=== PATIENT | female | born 1990 | race Caucasian/White ===

== ENCOUNTER → 2017-11-13 10:52 | Outpatient (CLI) | payer BC, MEDICAID, SELFPAY ==
[2017-11-13 12:49] LABS: Hematocrit 32.2 % (37-47); Hemoglobin 10.8 g/dl (12.0-15.0); Mean Corp Hgb Conc 33.5 g/gl (32-36); Mean Corpuscular Hgb 29.7 pg (27.0-32.0); Mean Corpuscular Volume 88.5 fL (81-99); Mean Platelet Vol. 10.3 fl (6.2-12.0); Platelet Count 209 K/mm3 (150-450); RBC Distribution Width CV 14.1 % (11.6-14.6); RBC Distribution Width SD 43.7 fl (35.1-43.9); Red Blood Count 3.64 M/mm3 (4.2-5.4); White Blood Count 11.4 K/mm3 (4.4-11.0)
[2017-11-13 12:50] LABS: Glucose Challenge Gest 1H 50g 112 mg/dL (70-140)
[2017-11-13 12:52] LABS: Scan Indicated on CBC? Y/N NO
== END ==
PROVIDERS: Visit Provider Obstetrics & Gynecology
DX: Z34.83 Encounter for supervision of other normal pregnancy, third trimester (principal); Z3A.00 Weeks of gestation of pregnancy not specified
CPT/HCPCS: 36415; 82950; 85027; 86850

== ENCOUNTER → 2018-01-08 13:51 | Outpatient (CLI) | payer BC, MEDICAID, SELFPAY ==
[2018-01-08 16:54] LABS: Group B Strep DNA By PCR POSITIVE (Negative)
[2018-01-08 16:55] LABS: Probe Check PASS
== END ==
PROVIDERS: Visit Provider Obstetrics & Gynecology
DX: Z36.85 Encounter for antenatal screening for Streptococcus B (principal)
CPT/HCPCS: 87653

== ENCOUNTER 2018-01-31 06:10 | Inpatient (IN) | payer BC, MEDICAID, SELFPAY ==
[2018-01-31 06:30] VITALS: BMI 32.5
[2018-01-31] MEDS: Lactated Ringers 1,000 ML 50 ML IV (06:30)
[2018-01-31 06:55] LABS: Hematocrit 38.3 % (37-47); Mean Corp Hgb Conc 33.9 g/gl (32-36); Mean Corpuscular Hgb 29.5 pg (27.0-32.0); Mean Corpuscular Volume 86.8 fL (81-99); Mean Platelet Vol. 10.5 fl (6.2-12.0); Platelet Count 144 K/mm3 (150-450); RBC Distribution Width CV 14.5 % (11.6-14.6); RBC Distribution Width SD 45.1 fl (35.1-43.9); Red Blood Count 4.41 M/mm3 (4.2-5.4); White Blood Count 15.3 K/mm3 (4.4-11.0)
[2018-01-31 06:57] LABS: Scan Indicated on CBC? Y/N NO
[2018-01-31] MEDS: Oxytocin 30 units/NS 500 ml 30 UNITS/500 ML IV.SOLN 334 UNITS IV (07:18)
--- NOTE | 2018-01-31 07:47 | PCM.OB.VAG ---
- Problem List (1) 39 weeks gestation of Status: Acute (2) (spontaneous vaginal delivery) Status: Acute Vaginal Delivery Maternal Presentation: Active Labor Amniotic Membrane Rupture Type: Artificial Rupture of Membrane time: 01/31/18 0652h Amniotic Fluid Description: Clear Final ZAIRA: 02/03/18 Final ZAIRA Source: US <20 weeks Gestational age: 39 Weeks and 4 Days Date of Procedure: 01/31/18 Pre-Operative Diagnosis: 39 4/7wga, labor Post-Operative Diagnosis: 39 4/7wga, labor, precipitous dleivery Surgery/ Procedure Performed: Spontaneous Vaginal Delivery Type of Anesthesia: None Description of Procedure: Patient was FD/+1 station. She pushed to deliver a vigorous female over an intact perineum. The infant was placed on the maternal abdomen and further attended by nursery personnel. The cord was doubly clamped and cut after approximately 5 minutes of life. Cord blood specimen was obtained. The placenta delivered spontaneously and appeared intact on inspection. The perineum and vagina were intact. There was excellent hemostasis. Presentation: Vertex, TARI Placental Delivery Description: Spontaneous Placenta Disposition: [facility] Cord Vessel Description: 3 Vessels Cord Entanglement: None Estimated Blood Loss: 250 mL A gender: Female (1 minute): 8 (5 minute): 9 Episiotomy Description: None Laceration: None Medications given after delivery: IV Pitocin Complications: None
[2018-01-31 09:11] LABS: AST(SGOT) 21 U/L (15-37); Alanine Aminotransfer ALT/SGPT 23 U/L (13-56); Creatinine, Serum 0.79 mg/dL (0.55-1.02); EST Glomerular Filtration Rate 94 mL/min (>60); Est Glom Filt Rate - Afr Amer 114 mL/min (>60); Estimated Creatinine Clearance 90.05 ml/min; Prothrombin Time (Protime)PT. 13.1 SECONDS (11.7-14.9); Uric Acid 5.9 mg/dL (2.6-6.0)
[2018-01-31 09:12] LABS: Partial Thromboplast Time 35.4 Seconds (24.1-36.2)
[2018-01-31] MEDS: Oxytocin 30 units/NS 500 ml 30 UNITS/500 ML IV.SOLN 167 UNITS IV (10:34)
[2018-01-31 11:33] VITALS: BP 141/85; PULSE 95; RESP 16; TEMP 36.6; O2SAT 96
[2018-01-31 13:00] VITALS: BP 130/81
[2018-01-31] MEDS: Ibuprofen 600 MG Tablet PO (13:53)
[2018-01-31 16:47] VITALS: BP 125/76; PULSE 85; RESP 16; TEMP 36.8; O2SAT 98
[2018-01-31] MEDS: Acetaminophen 325 MG Tablet PO (17:46)
[2018-01-31] MEDS: Prenatal Vits Tablet 1 TABLET PO (17:46)
[2018-01-31 20:00] VITALS: BP 116/75; PULSE 90; RESP 16; TEMP 36.8
[2018-02-01] VITALS: BP 114/72; PULSE 71; RESP 16; TEMP 36.4
[2018-02-01 04:45] VITALS: BP 121/70; PULSE 79; RESP 16; TEMP 36.7
[2018-02-01 08:16] VITALS: BP 130/77; PULSE 78; RESP 16; TEMP 36.6; O2SAT 98
--- NOTE | 2018-02-01 08:57 | CASEMGMT ---
Social Work Note [see assessment] BOZENA lives with David CERON, and their 3 year old son. BOZENA works FT as does JIE. MOB will be on 12 week maternity leave and then returning to work part-time. Both report to have adequate support among family. Financially feel stable. Both claim to have all necessary supplies including car seat, crib, clothes, diapers, etc. BOZENA intends on breast feeding. Reports that 3 year old has met infant and is very excited. No hx of involvement with CSB. BOZENA reports hx of ppd with her last child. Was on Zoloft for 6 months as prescribed by Dr. Stuart at the time. Educated to ppd and provided with packet. BOZENA expresses understanding in knowledge of symptoms and assistance to seek if those appear and persist. Her OBGYN is Dr. Stuart, but Miguel Angel delivered. Her PCP is at [facility] and she sees whoever is available. Infants Machine Shop Supervisor will be Dr. Bruce, and BOZENA knows to schedule an appointment within the next two weeks. Claims to have access to transportation. Denies substance abuse hx. No additional needs present at this time and MOB and FOB made aware that SW is available if needs arise. Alicja Quinn, SSN/SSBN WEAPONS EQUIPMENT OPERATOR, ELECTRICAL SUPERINTENDENT
--- NOTE | 2018-02-01 10:42 | PCM.PN.OB ---
Patient Problems: Active and Suspected Problems 39 weeks gestation of (Acute) (spontaneous vaginal delivery) (Acute) Subjective: Patient in the shower but indicates she is without complaints or problems. Doing well. Wants to stay until tomorrow. - Physical Exam Vital Signs AF, VSS Temp Pulse Resp BP Pulse Ox 97.8 F 78 16 130/77 H 98 02/01/18 08:16 02/01/18 08:16 02/01/18 08:16 02/01/18 08:16 02/01/18 08:16 Oxygen Delivery Method Room Air Weight: 183 lb 6.793 oz Body Mass Index (BMI) 32.5 Intake and Output for Last 24 Hours 01/30/18 01/31/18 02/01/18 23:59 23:59 23:59 Output Total 1250 / 1250 Balance -1250 / -1250 Medical Necessity - Tobacco Use Smoking Status: Former smoker Assessment/Plan Active and Suspected Problems 39 weeks gestation of (Acute) (spontaneous vaginal delivery) (Acute) Doing well. Continue present care. Anticipate release tomorrow.
[2018-02-01] MEDS: Prenatal Vits Tablet 1 TABLET PO (12:00)
[2018-02-01] MEDS: Ibuprofen 600 MG Tablet PO ×2 (12:00→23:47)
[2018-02-01 14:52] VITALS: BP 123/75; PULSE 84; RESP 16; TEMP 36.7
[2018-02-01 20:00] VITALS: BP 138/86; PULSE 83; RESP 16; TEMP 37; O2SAT 98
[2018-02-02] MEDS: Acetaminophen 325 MG Tablet PO (01:15)
[2018-02-02 02:00] VITALS: BP 112/80; PULSE 79; RESP 18; TEMP 36.4; O2SAT 97
[2018-02-02] MEDS: Ibuprofen 600 MG Tablet PO (06:45)
[2018-02-02 07:57] VITALS: BP 128/85; PULSE 78; RESP 16; TEMP 36.8
--- NOTE | 2018-02-02 09:35 | PCM.PN.OB ---
Patient Problems: Active and Suspected Problems 39 weeks gestation of (Acute) (spontaneous vaginal delivery) (Acute) Subjective: Patient without complaints. Breast-feeding going well. Ready to go home. - Physical Exam Vital Signs AF, VSS Temp Pulse Resp BP Pulse Ox 98.2 F 78 16 128/85 H 97 02/02/18 07:57 02/02/18 07:57 02/02/18 07:57 02/02/18 07:57 02/02/18 02:00 Oxygen Delivery Method Room Air Weight: 183 lb 6.793 oz Body Mass Index (BMI) 32.5 Intake and Output for Last 24 Hours 01/31/18 02/01/18 02/02/18 23:59 23:59 23:59 Output Total 1250 / 1250 Balance -1250 / -1250 Medical Necessity - Tobacco Use Smoking Status: Former smoker Assessment/Plan Active and Suspected Problems 39 weeks gestation of (Acute) (spontaneous vaginal delivery) (Acute) Doing well. Will release to home with routine instructions.
--- NOTE | 2018-02-02 09:36 | PCM.DCVAG ---
Discharge Diet: No Restrictions Discharge Activity: May Shower, May Take a Tub Bath May resume sexual activity in: 4-6 weeks Additional Activity Instructions:: Nothing in the vagina for 4-6 weeks. You may return to work/school in 6 weeks. Call your doctor if you observe: Fever of 101 or Higher, Inability to urinate, Inability to have a bowel movement, Using more than one pad per hour Additional Instructions: If you experience any of the following, contact your healthcare provider. Bleeding that soaks a pad every hour for 2 hours Unrelieved incision or abdominal pain Swelling, redness, discharge or bleeding from your incision or episiotomy site Your incision begins to separate Problems urinating (including inability to urinate or burning while urinating). Visual changes Severe headache Flu-like symptoms Pain or redness in one of both of your breasts Pain, warmth, tenderness or swelling in your legs, especially the calf area Frequent nausea and vomiting Symptoms of depression or anxiety If you experience any of the following, call 911 or go to the nearest Emergency Room. Chest pain Problems breathing Seizure activity Partial or complete paralysis of a body part, slurred speech, weakness or drooping of the face, or a sudden inability to walk or hold your balance Allergies/Adverse Reactions: Allergies No Known Allergies Allergy (Verified 01/31/18 06:27) Medications to take at Discharge Ferrous Sulfate [Iron] 325 mg PO DAILY 01/31/18 Pnv No.100/Iron/FA/Dha/Epa [Theranatal One Softgel] 1 tab PO DAILY 01/31/18 Please Follow Up With: Ton Tyson MD - [phone] When: Call to make an appointment with your doctor in 6 weeks. Primary Care Physician: Care Physician,No Primary [Primary Care Provider] -
--- NOTE | 2018-02-02 09:37 | DCINST_ITS ---
Discharge Diet: No Restrictions Discharge Activity: May Shower, May Take a Tub Bath May resume sexual activity in: 4-6 weeks Additional Activity Instructions:: Nothing in the vagina for 4-6 weeks. You may return to work/school in 6 weeks. Call your doctor if you observe: Fever of 101 or Higher, Inability to urinate, Inability to have a bowel movement, Using more than one pad per hour Additional Instructions: If you experience any of the following, contact your healthcare provider. * Bleeding that soaks a pad every hour for 2 hours * Unrelieved incision or abdominal pain * Swelling, redness, discharge or bleeding from your incision or episiotomy site * Your incision begins to separate * Problems urinating (including inability to urinate or burning while urinating) . * Visual changes * Severe headache * Flu-like symptoms * Pain or redness in one of both of your breasts * Pain, warmth, tenderness or swelling in your legs, especially the calf area * Frequent nausea and vomiting * Symptoms of depression or anxiety If you experience any of the following, call 911 or go to the nearest Emergency Room. * Chest pain * Problems breathing * Seizure activity * Partial or complete paralysis of a body part, slurred speech, weakness or drooping of the face, or a sudden inability to walk or hold your balance Allergies/Adverse Reactions: Allergies No Known Allergies Allergy (Verified 01/31/18 06:27) Medications to take at Discharge Ferrous Sulfate [Iron] 325 mg PO DAILY 01/31/18 Pnv No.100/Iron/FA/Dha/Epa [Theranatal One Softgel] 1 tab PO DAILY 01/31/18 Please Follow Up With: Ton Tyson MD - [phone] When: Call to make an appointment with your doctor in 6 weeks. Primary Care Physician: Care Physician,No Primary [Primary Care Provider] -
[2018-02-02] MEDS: Prenatal Vits Tablet 1 TABLET PO (11:23)
== END 2018-02-02 12:15 | disposition home or self-care (01) | DRG 775 ==
PROVIDERS: Admitting Provider Obstetrics & Gynecology; Visit Provider Obstetrics & Gynecology
DX: O62.3 Precipitate labor (principal); Z87.891 Personal history of nicotine dependence; Z3A.39 39 weeks gestation of pregnancy; Z37.0 Single live birth
CPT/HCPCS: 59050; 82565; 84450; 84460; 84550; 85027; 85610; 85730; 86850; 86900; 99218; J7120; G0378

== ENCOUNTER 2018-02-05 10:15 | Outpatient (CLI) | payer BC, MEDICAID, SELFPAY | END 2018-02-05 11:15 | disposition home or self-care (01) | LOC: WPOUT 10:18 → WP 10:19 | PROVIDERS: Visit Provider Obstetrics & Gynecology | DX: Z39.1 Encounter for care and examination of lactating mother (principal) | CPT/HCPCS: 96152 ==

== ENCOUNTER → 2018-03-18 11:10 | Outpatient (CLI) | payer BC, MEDICAID, SELFPAY ==
[2018-03-18 13:56] LABS: hCG Titer Quant., Serum < 1 mIU/mL (<9 non-preg)
[2018-03-25 15:39] LABS: HPV Reflexed? NOT INDICATED
== END ==
PROVIDERS: Visit Provider Obstetrics & Gynecology
DX: Z30.09 Encounter for other general counseling and advice on contraception (principal); Z12.4 Encounter for screening for malignant neoplasm of cervix
CPT/HCPCS: 36415; 84144; 84702; 88175; G0145

== ENCOUNTER 2018-04-28 10:27 | Day surgery (SDC) | payer BC, MEDICAID, SELFPAY ==
[2018-04-28] VITALS (7 sets, daily range): BP systolic 123–135; BP diastolic 73–82; PULSE 64–84; RESP 16–18; TEMP 36.2–36.8; O2SAT 98–100; BMI 28.5
[2018-04-28 10:51] LABS: Internal QC Validated? YES +Cl - CLEAR BKGD; Pregnancy, Urine Negative Negative
--- NOTE | 2018-04-28 12:00 | FALS_PTH ---
PATIENT: SANDRA CELESTE LOC: [facility] [place] U#:[id number] AGE/SX: 27/ ROOM: RE04/28/[address]: Dr. Rebekah Stuart MD : [id number] BED: DIS: 04/28/2018 SPEC #: [id number] RECD: 04/28/18 15:29 STATUS: BARBARA MARGARITO #: [id number] ZOHRA: 04/28/18 12:[address]: Rebekah Stuart DEPT: SURGICAL PATHOLOGY RECD BY: Rufus Ken ENTERED: 04/29/18 08:29 SP TYPE: FALL TUBES OTHR DR: Dr. Rinku Guillory MD Tissues: Fallopian tube Procedures: Surgery Specimen Level II HEADER OPERATION: Laparoscopic salpingectomy, bilateral PRE-OP DIAGNOSIS: Sterilization request TISSUE SUBMITTED: Bilateral fallopian tubes MICROSCOPIC DIAGNOSIS Bilateral fallopian tubes, salpingectomy: Bilateral fallopian tubes including fimbrial ends, no pathologic diagnosis. SJ:elisabet 04/30/18 MICROSCOPIC DESCRIPTION Slides are reviewed. GROSS DESCRIPTION Received is one container labeled with the patient's name and designated bilateral fallopian tubes. The specimen consists of bilateral fallopian tubes including fimbrial ends measuring 5.5 cm in length and 0.6 cm in diameter and 6 cm in length and 0.6 cm in diameter. The fallopian tubes are not identified as right or left. Sections do not reveal any mass lesion. Cattle Alley Worker sections are submitted in two cassettes with each cassette containing one fallopian tube. / VIOLET:elisabet 04/29/18 TC:4 CPT: 99781 x2
[2018-04-28] MEDS: Bupiv/Epi 0.5% Mpf 30 ML Vial (12:44)
[2018-04-28] MEDS: Silver Nitrate (BKC) 1 EACH (12:46)
--- NOTE | 2018-04-28 12:56 | PCM.DC.TUB ---
Discharge Diet: No Restrictions Discharge Activity: May not drive while taking narcotic pain medications., May Shower, May Take a Tub Bath May resume sexual activity in: 1 week Additional Activity Instructions:: Ambulate often the next week after surgery. Nothing in the vagina for 5 days. Call your doctor if you observe: Fever of 101 or Higher, Inability to urinate, Inability to have a bowel movement, Uncontrolled pain Change Dressing in (Days):: 4 Remove Dressing in (days):: 4 Cleanse incision/area with: Soap & Water, Keep Dressing Clean & Dry Allergies/Adverse Reactions: Allergies No Known Allergies Allergy (Verified 04/16/18 12:37) Medications to take at Discharge Pnv No.100/Iron/FA/Dha/Epa [Theranatal One Softgel] 1 tab PO DAILY 01/31/18 Ethinyl Estradiol/Drospirenone [Marcelina 28 Tablet] 1 each PO DAILY 04/16/18 Hydrocodone/Acetaminophen [[place] 5-325 Tablet] 1 - 2 tab PO 4X/DAY PRN 2 Days #10 tablet 04/28/18 The following prescriptions were given: Hydrocodone/Acetaminophen [[place] 5-325 Tablet] 1 - 2 tab PO 4X/DAY PRN 2 Days #10 tablet PRN Reason: Mod-Severe Pain (4-10/10) Primary Care Physician: Rinku Guillory MD [Primary Care Provider] - Test Results: Test results from this visit will be discussed in further detail at your follow-up appointment, if applicable. Please Follow Up With: Rebekah Stuart MD - [phone] When: appointment in 2 wk for postop check up. Proposed Discharge Date: 04/28/18
--- NOTE | 2018-04-28 13:01 | DCINST_ITS ---
Discharge Diet: No Restrictions Discharge Activity: May not drive while taking narcotic pain medications., May Shower, May Take a Tub Bath May resume sexual activity in: 1 week Additional Activity Instructions:: Ambulate often the next week after surgery. Nothing in the vagina for 5 days. Call your doctor if you observe: Fever of 101 or Higher, Inability to urinate, Inability to have a bowel movement, Uncontrolled pain Change Dressing in (Days):: 4 Remove Dressing in (days):: 4 Cleanse incision/area with: Soap & Water, Keep Dressing Clean & Dry Allergies/Adverse Reactions: Allergies No Known Allergies Allergy (Verified 04/16/18 12:37) Medications to take at Discharge Pnv No.100/Iron/FA/Dha/Epa [Theranatal One Softgel] 1 tab PO DAILY 01/31/18 Ethinyl Estradiol/Drospirenone [Marcelina 28 Tablet] 1 each PO DAILY 04/16/18 Hydrocodone/Acetaminophen [[place] 5-325 Tablet] 1 - 2 tab PO 4X/DAY PRN 2 Days # 10 tablet 04/28/18 The following prescriptions were given: Hydrocodone/Acetaminophen [[place] 5-325 Tablet] 1 - 2 tab PO 4X/DAY PRN 2 Days # 10 tablet PRN Reason: Mod-Severe Pain (4-10/10) Primary Care Physician: Rinku Guillory MD [Primary Care Provider] - Test Results: Test results from this visit will be discussed in further detail at your follow- up appointment, if applicable. Please Follow Up With: Rebekah Stuart MD - [phone] When: appointment in 2 wk for postop check up. Proposed Discharge Date: 04/28/18
--- NOTE | 2018-04-28 17:23 | PCM.OP.BLANK ---
Operative Report Date of Procedure: 04/28/18 PROCEDURE: Laparoscopic Bilateral Salpingectomy PREOPERATIVE DIAGNOSIS: Sterilization request POSTOPERATIVE diagnosis: Sterilization request Surgeon: Rebekah Stuart MD Anesthesia: general anesthesia. Ashley Ashley CRNA Scrub Wheel Operator: none EBL: minimal Complications: None Drains: none. Voided just prior to OR Fluids: LR replacement Findings; Normal appearing, uterus. Fallopian tubes and ovaries are WNL. Gross inspection of bowel, omentum. liver edge also WNL. photos were taken of the uterus and ovaries after Bilateral salpingectomy, and of the RUQ / liver edge Photo also taken of filmy periappendiceal adhesions noted. Narrative account: After the risks, benefits, alternatives of procedure had been reviewed with the patient, informed consent was obtained. The patient was taken back to the Operative room with an IV running. she was positioned on the operating table in dorsal supine position, where she was given general anesthesia. Once asleep she was repositioned to the dorsal lithotomy position and prepped and draped in the usual sterile fashion with arms tucked bilaterally. A single toothed tenaculum and Gerry cannula were placed into the cervix to allow manipulation of the uterus and cervix during the case. Attention was then turned to the anterior abdominal wall where 0.25 % Marcaine with epinephrine was instilled at the suprapubic and infraumbilical skin and at a point midway between in the midline. 5 mm skin incisions were then created in the midline at the suprapubic skin and at the infraumbilical skin and midway between the two. While maintaining upward traction of the anterior abdominal wall a Veress needle was inserted through the umbilical incision into the peritoneal cavity. There was free drop of saline, low opening pressure and free flow of CO2 noted. Once the intraabdominal pressure had reached 12 mm of mercury the Veress needle was removed and a bladeless 5 mm trocar was placed through infraumbilical skin incision into the peritoneal cavity. Correct placement was confirmed using the scope. Under direct visualization then with the patient in Trendelenburg position, a bladeless 5 mm trocar was inserted in through suprapubic skin incision into the peritoneal cavity and at a point midway between the infraumbilical and suprapubic trocars. The uterus as anteverted and both ovaries and fallopian tubes were WNL. The L fallopian tube was grasped and retracted medially and using a LigaSure device the fallopian tube was excised from the ovary and mesosalpinx. Excellent hemostasis was noted at the excision site. The L fallopian tube was brought through the suprapubic trocar and set aside for later pathology review. In a similar manner the R fallopian tube was grasped and retracted medially and the fallopian tube was excised and removed from the abdominal cavity through the suprapubic trochar. The Fallopian tubes were sent to pathology. Excellent hemostasis was noted by visualization of the pelvis, ovaries, and remaining mesosalpinx. Photos were taken of the uterus and Bilateral remaining ovaries and of the RUQ and liver edge. The appendix was also photographed with filmy periappendiceal adhesions noted. At this point the the procedure was terminated. The pneumoperitoneum was reduced and the instruments and trocars were removed from he the anterior abdominal wall skin. The skin incisions were closed with 4-0 Monocryl in a subcuticular fashion. Dermabond and OpSites were applied to the skin. The Single toothed tenaculum and Gerry cannula were removed from the vagina. There was some bleeding noted at the tenaculum puncture sites and a ring forceps was used to apply pressure. The puncture sites were treated with AgNO3. Excellent hemostasis was then noted. The patient was returned to dorsal supine position. She was awakened from general anesthesia. She was transferred to the recovery room bed in stable condition after tolerating the procedure well. Sponge, lap, needle and instrument counts were correct x two. Medications given preop and intraoperatively included: 10 cc of 1/2 % Marcaine with epinephrine --used as a subcutaneous block . For a complete listing of medications given preop and intraop , please see the anesthesia record.
== END 2018-04-28 14:45 | disposition home or self-care (01) ==
LOC: SDC 10:28 → AC 10:29
PROVIDERS: Family Provider Family Medicine; PCP Family Medicine; Visit Provider Obstetrics & Gynecology
PROC: (CPT 58661; principal; 2018-04-28 11:45)
DX: Z30.2 Encounter for sterilization (principal); F17.200 Nicotine dependence, unspecified, uncomplicated
CPT/HCPCS: 00840; 58661; 81025; 88302; J7120; J2405